=== PATIENT | male | born 1990 | race Caucasian/White ===

== ENCOUNTER 2024-02-23 13:38 | Emergency (ER) | payer MEDICAID, SELFPAY ==
--- NOTE | ~2024-02-23 | XR_ITS ---
EXAMINATION: XR LEFT FOOT XR LEFT ANKLE CLINICAL INFORMATION: Left foot and ankle pain. COMPARISON: None available. TECHNIQUE: 2 views of the left ankle. 3 views of the left foot. FINDINGS: Alignment is anatomic. Joint spaces are maintained. The talar dome is intact. No displaced fracture or dislocation. No focal radiographic soft tissue zone. XR/XR ankle LT min 3V IMPRESSION: No acute abnormality. Electronically signed by: Franklin Oneil MD 02/23/2024 03:09 PM [facility]
--- NOTE | ~2024-02-23 | XR_ITS ---
EXAMINATION: XR LEFT FOOT XR LEFT ANKLE CLINICAL INFORMATION: Left foot and ankle pain. COMPARISON: None available. TECHNIQUE: 2 views of the left ankle. 3 views of the left foot. FINDINGS: Alignment is anatomic. Joint spaces are maintained. The talar dome is intact. No displaced fracture or dislocation. No focal radiographic soft tissue zone. XR/XR foot LT 2V IMPRESSION: No acute abnormality. Electronically signed by: Franklin Oneil MD 02/23/2024 03:09 PM [facility]
[2024-02-23 14:08] VITALS: BP 122/82; PULSE 79; RESP 19; TEMP 36.6; O2SAT 99; BMI 26.1
--- NOTE | 2024-02-23 14:13 | ED.GENADULT ---
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 States he has taken ibuprofen but pain has persisted. Denies any weakness, numbness, tingling. Complains of pain to instep as well as lateral aspect of foot. MD complaint: Left foot pain Onset (ago): week(s) Treatments prior to arrival: NSAID Related Data Allergies Allergy/AdvReac Type Severity Reaction Status Date / Time No Known Allergies Allergy Verified 02/23/24 14:10 Review of Systems Review of Systems: As per HPI. Yes all other systems are reviewed and are negative Constitutional: Constitutional: Reports as per HPI [facility] Social History Social History Advance Directives: No Advance Directives Information Provided: No Do you have a plan to hurt others: No Plan Physical Exam ED Vital Signs: Vital Signs - 24 hr 02/23/24 14:08 Temperature 98 F Pulse Rate 79 Respiratory Rate 19 Blood Pressure 122/82 Pulse Oximetry 99 Oxygen Delivery Method Room Air BMI result Body Mass Index 26.1 Vital signs have been reviewed and appear to be correct. Blood pressure normal. Heart rate normal. Respiratory rate normal. Temperature normal. Oxygen saturation normal. Const General: cooperative, healthy appearing and no acute distress Orientation/consciousness: oriented to person, oriented to place, oriented to time and patient oriented x3 Limitations: no limitations [facility] Head: Yes normocephalic and Yes atraumatic Ears: external ears normal General nose exam: Normal external nose present Face and sinus: Yes face symmetric Mouth: oropharynx normal and moist mucous membranes Throat: Yes uvula midline Eyes Pupils: Equal, round and reactive pupils present Neck Neck: Yes normal visual inspection and Yes supple Resp Effort & Inspection: normal respiratory effort and able to speak in complete sentences Auscultation: clear to auscultation bilaterally Cardio Rate: regular rate Rhythm: regular rhythm Heart sounds: S1 normal heart sound present and S2 normal heart sound present GI Palpation (GI): Soft to palpation and nontender Auscultation: normoactive bowel sounds General: Yes no CVA tenderness Back/Spine/Pelvis Back: no CVA tenderness Skin General skin exam: elasticity normal and turgor normal Neuro General: oriented to person, oriented to place, oriented to time, patient oriented x3, moves all extremities, no focal motor deficits and CN's II-XI intact bilaterally Cranial nerves: Yes Equal, round and reactive pupils present Cognition (Neuro): normal cognition Extrem General: Yes full ROM, Yes no pedal edema and Yes no calf tenderness Left lower extremity: ankle Details: normal to inspection, no edema and normal ROM; no tenderness, no warmth and no ecchymosis and foot Details: normal capillary refill, normal to inspection, tenderness Location: of the plantar foot Location: other (mid foot arch) and of the lateral foot Location: at the base of the 5th metatarsal, toes with normal ROM, no edema, vascular exam Details: dorsalis pedis pulse present, posterior tibial pulse present and normal capillary refill and motor-sensory exam Details: two point discrimination normal Location: in all toes and light-touch normal Location: in all toes; no unusual warmth and no ecchymosis Psych Mental Status: mental status grossly normal Affect: normal affect Thought process: Normal thought process present Course Course Course Narrative: RME: Temperature male presents to ED for left ankle foot pain after twisting it 2-1/2 weeks ago. Patient had normal x-ray 2 weeks ago at primary care office but return to the ED for re-evaluation due to still having pain. Physical exam negative for leg swelling, calf pain, or pitting edema. Positive for left foot tenderness on palpation. X-rays ordered. Medical Decision Making Medical Decision Making MDM Narrative: Patient is a 34-year-old male presenting to the emergency department with complaint of left foot pain after twisting his ankle around 2 weeks ago. On exam patient is awake, A+Ox3, VS WNL, afebrile, normal neurological exam without focal deficits, physical exam findings as above. Given reported symptoms and physical exam findings, initial differential includes left foot strain, sprain, fracture. Less likely ankle strain, sprain or fracture as patient denies ankle pain. X-rays left ankle and foot notable for no acute fractures or dislocation. My interpretation is in agreement with the radiologist's interpretation. Results discussed with patient and all questions answered. Will place patient in walking boot until he can follow-up with orthopedics. Advised Tylenol, ibuprofen, RICE. Return precautions discussed. Patient verbalized understanding of and agreement with plan. Differential Diagnosis Differential Diagnoses: The differential diagnosis associated with the presentation includes As per MDM Independent Interpretation I performed an independent interpretation of an: Plain X-Ray Interpretation: X-rays left ankle and foot notable for no acute fractures or dislocation. Radiology Impression Discussion of test interpretation with radiology: I have reviewed the radiologist's reading. Radiologist Impression: XR/XR foot LT 2V IMPRESSION: No acute abnormality. XR/XR ankle LT min 3V IMPRESSION: No acute abnormality. External Record Review External record reviewed: Inpatient record, Office record and Outpatient record Discharge Plan Discharge Clinical Impression: Sprain of foot, left Patient Disposition: Home, Self-Care Instructions: Foot Sprain (ED), R.I.C.E. Treatment (ED), Walking Boot (ED) Additional Instructions: You have been evaluated in the emergency department today for left foot and ankle pain. Your evaluation did not find evidence of medical conditions requiring emergent intervention at this time. We have provided a walking boot for you to use while your foot heals. We recommend that you call the orthopedic office to schedule an appointment for further evaluation. Please rest, ice, and elevate your foot, and resume normal activities as tolerated. We recommend you take 600mg ibuprofen every 6 hours or 650mg Tylenol every 6 hours as needed for pain. If Needed you can alternate these medications as they take 1 medication every 3 hours. For instance at noon take ibuprofen, then at 3:00 p.m. take Tylenol, then at 6:00 p.m. take ibuprofen. Please schedule an appointment for follow-up with your primary care provider this week. Return to the emergency department if you experience worsening pain, numbness, tingling, change of color in your foot, or any other concerning symptoms. Referrals: [facility] [Provider Group] Print Language: [place]ian
[2024-02-23 18:10] VITALS: BP 122/82; PULSE 79; RESP 19; TEMP 36.6; O2SAT 99
== END 2024-02-23 18:10 | disposition home or self-care (01) ==
PROVIDERS: Emergency Provider Emergency Medicine Emergency Medical Services
DX: S93.602A Unspecified sprain of left foot, initial encounter (principal); M25.572 Pain in left ankle and joints of left foot; X50.1XXA Overexertion from prolonged static or awkward postures, initial encounter; Y93.89 Activity, other specified; Y92.89 Other specified places as the place of occurrence of the external cause; Y99.8 Other external cause status
CPT/HCPCS: 73610; 73620; 99282; 99283